=== PATIENT | male | born 1995 | race African-American/Black ===

== ENCOUNTER 2019-06-15 16:06 | Emergency (ER) | payer MEDICAID ==
[~2019-06-15] VITALS: Ht 182.9 cm; Wt 66.0 kg
[2019-06-15 16:22] VITALS: BP 114/90
[2019-06-15] MEDS ORDERED: MAGNESIUM/ALUMINUM HYDROXIDE/SIMETHICONE 30ML UDC PO STA (16:41)
[2019-06-15] MEDS ORDERED: DICYCLOMINE 10 MG/5 ML ORAL SYR PO STA (16:41)
[2019-06-15] MEDS ORDERED: IBUPROFEN 600MG TABLET PO STA (16:41)
[2019-06-15 17:16] LABS: CLARITY URINE CLEAR (CLEAR); COLOR URINE DARK YELLOW (YELLOW); KETONES URINE 2+ (NEGATIVE); LEUKOCYTE ESTERASE URINE TRACE (NEGATIVE); NITRITE URINE NEGATIVE (NEGATIVE); OCCULT BLOOD URINE NEGATIVE (NEGATIVE); PH URINE 8.5 (4.5-8.0); PROTEIN URINE TRACE (NEGATIVE)
== END 2019-06-15 18:10 | disposition home or self-care (01) ==
LOC: ER 16:16
DX: R10.30 Lower abdominal pain, unspecified (principal); K62.89 Other specified diseases of anus and rectum
CPT/HCPCS: 74018; 81003; 99284